=== PATIENT | male | born 1995 | race Caucasian/White ===

== ENCOUNTER 2017-03-12 22:40 | Emergency (ER) | payer SELFPAY ==
[~2017-03-12] VITALS: Ht 162.6 cm; Wt 53.0 kg
[2017-03-12 22:47] VITALS: Ht 162.6 cm; Wt 53.0 kg
[2017-03-13 00:11] LABS: ADD SCAN DIFF NO
--- NOTE | 2017-03-13 00:21 | RADRPT ---
PROCEDURE: XR Chest. CLINICAL INDICATION: Chest pain. TECHNIQUE: Portable AP supine view of the chest was obtained. COMPARISON: None. FINDINGS: The cardiomediastinal silhouette is within normal limits. The lungs are clear. The diaphragm is in normal position. The costophrenic angles are sharp. The osseous structures are intact with no radha dence for acute abnormality. RPTAT:HJJR IMPRESSION: No evidence for acute intrathoracic pathology. Physician Chuy Date Time Electronically viewed and signed by Physician Chuy on 03/13/2017 00:21 JR/
[2017-03-13 00:23] LABS: BASOPHIL # 0.1 10^3/ul (0.0-0.1); BASOPHILS % 0.8 % (0.0-2.0); EOSINOPHILS # 0.1 10^3/ul (0.0-0.5); EOSINOPHILS % 1.2 % (0.0-7.0); HEMATOCRIT 51.9 % (42.0-52.0); HEMOGLOBIN 17.5 g/dl (14.0-18.0); LYMPHOCYTES # 1.9 10^3/ul (0.8-2.9); LYMPHOCYTES % 31.6 % (18.0-55.0); MEAN CORPUSCULAR HEMOGLOBIN 28.6 pg (29.0-33.0); MEAN CORPUSCULAR HGB CONC 33.7 g/dl (32.0-37.0); MEAN CORPUSCULAR VOLUME 84.9 fl (72.0-104.0); MEAN PLATELET VOLUME 10.1 fl (7.4-10.4); MONOCYTE # 0.4 10^3/ul (0.3-0.9); MONOCYTES % 6.9 % (0.0-13.0); NEUTROPHIL # 3.6 10^3/ul (1.6-7.5); NEUTROPHILS % 59.2 % (30.0-74.0); PLATELET COUNT 332 10^3/UL (140-415); RED BLOOD COUNT 6.11 10^6/ul (4.70-6.10); RED CELL DISTRIBUTION WIDTH 12.8 % (11.5-14.5); WHITE BLOOD COUNT 6.1 10^3/ul (4.8-10.8)
[2017-03-13 00:41] LABS: ADD UMIC NO; UR ASCORBIC ACID NEGATIVE (NEGATIVE); UR BILIRUBIN (Dip) NEGATIVE (NEGATIVE); UR BLOOD (Dip) NEGATIVE (NEGATIVE); UR CLARITY CLEAR (CLEAR); UR COLOR STRAW (YELLOW); UR GLUCOSE (Dip) NEGATIVE (NEGATIVE); UR KETONES (Dip) NEGATIVE (NEGATIVE); UR LEUKOCYTE ESTERASE (Dip) NEGATIVE Leu/ul (NEGATIVE); UR NITRITE (Dip) NEGATIVE (NEGATIVE); UR SPECIFIC GRAVITY (Dip) 1.004 (1.003-1.030); UR TOTAL PROTEIN (Dip) NEGATIVE (NEGATIVE); UR UROBILINOGEN (Dip) NEGATIVE (NEGATIVE)
[2017-03-13 00:47] LABS: ALBUMIN 5.4 g/dl (3.3-4.9); ALBUMIN/GLOBULIN RATIO 1.45; BILIRUBIN,INDIRECT 1.1 mg/dl (0-1.1); BILIRUBIN,TOTAL 1.1 mg/dl (0.2-1.3); CALCIUM 10.6 mg/dl (8.4-10.2); CREATININE 0.89 mg/dl (0.61-1.24); POTASSIUM 3.5 mmol/L (3.5-5.1); TOTAL PROTEIN 9.1 g/dl (6.1-8.1)
--- NOTE | 2017-03-13 00:50 | RADRPT ---
PROCEDURE: US Scrotum. CLINICAL INDICATION: Palpable bump. TECHNIQUE: Multiple sonographic images of the scrotal region were obtained utilizing a linear arra y transducer with grayscale and color-flow and a Doppler imaging. The images were reviewed on a high -resolution PACS workstation. COMPARISON: 01/07/2013 FINDINGS: Right hemiscrotum: Testis: Normal in size, morphology and without mass. There is normal blood flow. Testicular size is estimated at 4.3 x 2.7 x 1.9 centimeters. Epididymis: No abnormalities are identified, normal size and blood flow is demonstrated. Hydrocele: None identified. Varicocele: None identified. Scrotal skin: Not thickened. Left hemiscrotum: Testis: Normal in size, morphology and without mass. There is normal blood flow. Testicular size i s estimated at 4.2 x 2.7 x 1.8 centimeters. Epididymis: No abnormalities are identified, normal size and blood flow is demonstrated. Hydrocele: Small and simple. Varicocele: None identified. Scrotal skin: Not thickened. RPTAT:HJJR IMPRESSION: Small simple left-sided hydrocele, otherwise unremarkable examination without findings to correlate with the provided history. Physician Chuy Date Time Electronically viewed and signed by Physician Chuy on 03/13/2017 00:49 /
--- NOTE | 2017-03-13 00:52 | ERD ---
ER Documentation Chief Complaint Date/Time DATE: 03/13/17 TIME: 00:45 Chief Complaint chest pain since thursday,new noted skin discoloration on right elbow per pt HPI This is a 21-year-old male presents to the ER with multiple complaints. Patient states that he has had chest pain shortness of breath since Thursday. When chest pain started he was just sitting at home. He states that he feels as if his chest feels heavy. Patient denies any cough or cold symptoms. He denies any fevers or chills. He has not traveled anywhere. He denies any leg pain or leg swelling. He is also complaining of left-sided testicular bump which she noticed 3 months ago. He also complains of urinary frequency however denies dysuria. Patient is also complaining of generalized abdominal pain. Abdominal pain also started on Thursday. He denies any nausea vomiting or diarrhea. Patient is also complaining of weakness stating that he feels as if he is going to fall. ROS 12 point review of systems was done, all negative except per HPI. Medications Home Meds Active Scripts Ibuprofen* (Motrin*) 400 Mg Tab, 400 MG PO Q6, #30 TAB Prov:SABRINA ST 03/13/17 Allergies Allergies: Coded Allergies: No Known Allergy (Verified , 01/07/13) PMhx/Soc History of Surgery: Yes (Appendectomy) Anesthesia Reaction: No Hx Neurological Disorder: No Hx Respiratory Disorders: No Hx Cardiac Disorders: No Hx Psychiatric Problems: No Hx Miscellaneous Medical Probl: No Hx Alcohol Use: Yes Hx Substance Use: Yes Hx Tobacco Use: Yes Smoking Status: Current every day smoker Physical Exam Vitals Vital Signs Date Time Temp Pulse Resp B/P Pulse Ox O2 Delivery O2 Flow Rate FiO2 03/12/17 22:47 97.4 90 20 137/78 96 Physical Exam GENERAL: The patient is well developed and appropriate for usual state of health , in no apparent distress. HEENT: Atraumatic. Conjunctivae are pink. Pupils equal, round, and reactive to light. Extraocular muscles are grossly intact. Bilateral tympanic membranes are clear with no evidence of erythema, effusion or dulling of the light reflex. The oropharynx is clear with no erythema or exudates. NECK: C-spine is soft and supple. There is no cervical lymphadenopathy. CHEST: Clear to auscultation bilaterally. There are no rales, wheezes or rhonchi. HEART: Regular rate and rhythm. No murmurs, clicks, rubs or gallops. ABDOMEN: Soft, nontender and nondistended. Good bowel sounds. No rebound or guarding. No gross peritonitis. No gross organomegaly or masses. No Beasley sign or McBurney point tenderness. BACK: No midline or flank tenderness. EXTREMITIES: Equal pulses bilaterally. There is no peripheral clubbing, cyanosis or edema. No focal swelling or erythema. Full range of motion. Grossly neurovascularly intact. NEURO: Alert and oriented. Cranial nerves II through XII are intact. Motor strength in all 4 extremities with 5/5 strength. Sensation grossly intact. Normal speech and gait. SKIN: There is no apparent rash or petechia. The skin is warm and dry. Result Diagram: 03/12/17 2355 03/12/175 Results 24 hrs Laboratory Tests Test 03/12/17 23:55 03/12/17 23:59 White Blood Count 6.110^3/ul Red Blood Count 6.1110^6/ul Hemoglobin 17.5g/dl Hematocrit 51.9% Mean Corpuscular Volume 84.9fl Mean Corpuscular Hemoglobin 28.6pg Mean Corpuscular Hemoglobin Concent 33.7g/dl Red Cell Distribution Width 12.8% Platelet Count 15654^3/UL Mean Platelet Volume 10.1fl Neutrophils % 59.2% Lymphocytes % 31.6% Monocytes % 6.9% Eosinophils % 1.2% Basophils % 0.8% Nucleated Red Blood Cells % 0.0/100WBC Neutrophils # 3.610^3/ul Lymphocytes # 1.910^3/ul Monocytes # 0.410^3/ul Eosinophils # 0.110^3/ul Basophils # 0.110^3/ul Nucleated Red Blood Cells # 0.010^3/ul Sodium Level 134mmol/L Potassium Level 3.5mmol/L Chloride Level 99mmol/L Carbon Dioxide Level 26mmol/L Anion Gap 13 Blood Urea Nitrogen 12mg/dl Creatinine 0.89mg/dl Glucose Level 97mg/dl Calcium Level 10.6mg/dl Total Bilirubin 1.1mg/dl Direct Bilirubin 0.00mg/dl Indirect Bilirubin 1.1mg/dl Aspartate Amino Transf (AST/SGOT) 29IU/L Alanine Aminotransferase (ALT/SGPT) 59IU/L Alkaline Phosphatase 120IU/L Total Protein 9.1g/dl Albumin 5.4g/dl Globulin 3.70g/dl Albumin/Globulin Ratio 1.45 Urine Color STRAW Urine Clarity CLEAR Urine pH 7.0 Urine Specific [place] 1.004 Urine Ketones NEGATIVEmg/dL Urine Nitrite NEGATIVEmg/dL Urine Bilirubin NEGATIVEmg/dL Urine Urobilinogen NEGATIVEmg/dL Urine Leukocyte Esterase NEGATIVELeu/ul Urine Hemoglobin NEGATIVEmg/dL Urine Glucose NEGATIVEmg/dL Urine Total Protein NEGATIVEmg/dl Procedures/MDM This is a 21-year-old male presents to the ER with multiple complaints. Differential diagnosis includes but is not limited to; STEMI, dissection, pneumothorax, PE, esophageal rupture, tamponade, pneumonia, pericarditis, GERD, musculoskeletal, endocarditis, anxiety. At this time etiology of chest pain is unknown. However suspicion for acute cardiac etiology is low. EKG was taken and read by my supervising physician 80bpm no ST elevation or t wave inversion. Chest x-ray was negative for pneumonia or other intrathoracic abnormality. Patient does not have any PERC criteria. In regards to patient's abdominal pain, abdominal examination was completely benign and he was not tender anywhere in his abdomen. At this time I do not believe any imaging is necessary. Blood work was normal there was no evidence of transaminitis or electrolyte abnormalities. Patient does not have any leukocytosis to indicate infection. Regards to patient's frequent urination there is no evidence of urinary tract infection. He did have a small hydrocele to the left testicle. Patient will be sent home with ibuprofen. Needs to follow-up with his primary care doctor within 1-2 days or return to ER sooner if symptoms worsen. My medical decision making shared with the patient understands and agrees with plan. Departure Diagnosis: Primary Impression: Chest pain Additional Impression: Hydrocele Condition: Stable SABRINA ST Mar 13, 2017 00:52
[2017-03-13] MEDS ORDERED: IBUP400T22 PO (00:56)
== END 2017-03-13 01:10 | disposition home or self-care (01) ==
LOC: FTE 22:40
DX: R07.9 Chest pain, unspecified (principal); N43.3 Hydrocele, unspecified; F17.210 Nicotine dependence, cigarettes, uncomplicated
CPT/HCPCS: 71010; 76870; 80053; 81003; 85025; 93005

== ENCOUNTER 2018-05-06 13:23 | Emergency (ER) | END 2018-05-06 14:40 | disposition home or self-care (01) ==

== ENCOUNTER 2018-08-19 11:06 | Emergency (ER) | END 2018-08-19 12:05 | disposition home or self-care (01) ==

== ENCOUNTER 2018-08-26 16:42 | Emergency (ER) | END 2018-08-26 19:26 | disposition home or self-care (01) ==

== ENCOUNTER 2018-11-09 18:25 | Emergency (ER) | payer SELFPAY ==
[~2018-11-09] VITALS: Ht 162.6 cm; Wt 56.5 kg
[~2018-11-09 18:25] MED LIST: ACET325T33 PO; IBUP-1542 PO; IBUP-1561 PO
[2018-11-09 18:42] VITALS: BP 134/92; PULSE 82; RESP 18; Ht 162.6 cm; Wt 56.5 kg
== END 2018-11-09 21:15 | disposition left against medical advice (07) ==
LOC: FTE 18:25
DX: Z53.21 Procedure and treatment not carried out due to patient leaving prior to being seen by health care provider (principal)